=== PATIENT | male | born 1990 | race Caucasian/White ===

== ENCOUNTER 2017-05-19 04:35 | Emergency (ER) | payer OTHER ==
[~2017-05-19] VITALS: Ht 165.1 cm; Wt 65.8 kg
--- NOTE | 2017-05-19 04:41 | NUR ---
PT STATES HAS FB IN LT EAR.PT STATES HAS FELT SOMETHING FOR A WHILE.PT ALSO STATES HEART HAS STOPPED PUMPING AT TIMES.PT STATES HAS TROUBLE CONCENTRATING... PT IS ALERT, ORIENTED X 4, NO RESP DISTRSS NOTED OR REPORTED UPON ASSESSMENT... MD AT BEDSIDE..
--- NOTE | 2017-05-19 05:15 | NUR ---
Patient discharged to home in stable conditon. Written and verbal after care instructions given. Patient verbalizes understanding of instructions. pt walked out of er unassisted with belongings at side...
[2017-05-19 05:30] VITALS: BP 115/77
== END 2017-05-19 05:31 | disposition home or self-care (01) ==
LOC: ER 04:35
DX: H92.02 Otalgia, left ear (principal); F20.9 Schizophrenia, unspecified
CPT/HCPCS: A4663

== ENCOUNTER → 2017-05-19 | Emergency (ER) | payer OTHER | END | disposition left against medical advice (07) | LOC: ER 07:14 | DX: Z53.21 Procedure and treatment not carried out due to patient leaving prior to being seen by health care provider (principal) ==